=== PATIENT | male | born 1970 | race African-American/Black ===

== ENCOUNTER 2024-03-10 11:35 | Emergency (ER) | payer SELFPAY ==
[~2024-03-10] VITALS: Ht 175.3 cm; Wt 77.1 kg
[2024-03-10 11:40] VITALS: O2SAT 100
[2024-03-10] MEDS ORDERED: ONDANSETRON HCL 4MG/2ML INJ IV STA (11:41)
[2024-03-10] MEDS ORDERED: FAMOTIDINE 20MG/2ML VIAL IV STA (11:41)
[2024-03-10] MEDS ORDERED: KETOROLAC 30MG/ML VIAL IV STA (11:41)
[2024-03-10 14:25] LABS: CHLORIDE 110 mEq/L (98-107); POTASSIUM 3.8 mEq/L (3.5-5.1); SODIUM 141 mEq/L (136-145)
[2024-03-10 14:26] LABS: CARBON DIOXIDE 20 mEq/L (21-32)
[2024-03-10 14:27] LABS: CALCIUM 9.9 mg/dL (8.7-10.4)
[2024-03-10 14:31] LABS: CREATININE 1.1 mg/dL (0.6-1.3); GLUCOSE 166 mg/dL (70-105)
[2024-03-10 14:32] LABS: UREA NITROGEN BLOOD 12 mg/dL (9-23)
[2024-03-10 14:33] LABS: ALANINE AMINOTRANSFERASE 27 IU/L (10-49); ALBUMIN 4.8 g/dL (3.2-4.8); ASPARTATE AMINOTRANSFERASE 29 IU/L (<34)
[2024-03-10 14:34] LABS: BILIRUBIN DIRECT 0.3 mg/dL (<=3.0); BILIRUBIN TOTAL 0.8 mg/dL (0.1-1.0); PROTEIN TOTAL 8.3 g/dL (6.0-8.3)
[2024-03-10 14:39] LABS: TROPONIN I HIGH SENSITIVITY < 4 ng/L (3.0-53)
[2024-03-10] MEDS: MORPHINE SULFATE 4 MG/ML INJ (FOR IV/IM USE) IV ONE (15:05)
[2024-03-10] MEDS: SODIUM CHLORIDE 0.9% 1,000 ML IV ONE (15:05)
[2024-03-10] MEDS: ONDANSETRON HCL 4MG/2ML INJ IV ONE (15:06)
[2024-03-10 15:24] LABS: BASOPHILS % 0.2 % (0.0-2.0); HEMATOCRIT. 48.9 % (42.0-52.0); HEMOGLOBIN. 16.3 g/dL (14.0-18.0); LYMPHOCYTES % 9.7 % (20.0-50.0); MEAN CORPUSCULAR HEMOGLOBIN 31.9 pg (28.0-32.0); MEAN CORPUSCULAR HGB CONC 33.3 g/dL (31.0-37.0); MEAN PLATELET VOLUME 7.7 fl (7.4-10.4); MONOCYTES % 4.1 % (2.0-8.0); PLATELET 242 x1000/uL (130-400); RED CELL DISTRIBUTION WIDTH 14.1 % (11.6-14.6); WHITE BLOOD COUNT 10.9 x1000/uL (4.5-11.0)
[2024-03-10] MEDS: FAMOTIDINE 20MG/2ML VIAL IV NR (15:24)
[2024-03-10] MEDS: KETOROLAC 30MG/ML VIAL IV NR (15:24)
[2024-03-10 17:00] VITALS: BP 132/68; PULSE 55; RESP 20; TEMP 36.2512
[2024-03-10] MEDS: ONDANSETRON HCL 4MG/2ML INJ IV NR (17:28)
[2024-03-10 18:00] VITALS: BP 133/65; PULSE 66; RESP 20; TEMP 36.16956; O2SAT 98
[2024-03-10 20:00] VITALS: BP 128/74; PULSE 74; RESP 20; TEMP 35.61396
== END 2024-03-10 17:08 | disposition admitted as inpatient to this hospital (09) ==
LOC: ER 11:35 → INTOOBSV 14:57 → 4WST 14:57 → UNDOADMOB 14:57 → EDBEDREQ 15:02 → EDBEDREQTM 15:02 → UNDODISOB 22:30
DX: R11.2 Nausea with vomiting, unspecified (principal); R10.9 Unspecified abdominal pain
CPT/HCPCS: 80076; 80048; 83690; 85025; 84484; 36415; 96361; 96374; 96375; 96376; 99284; J3490; J1885; J2405; J2270; J7030; Z7610 ×2; C1893; 99285